=== PATIENT | male | born 1995 | race Caucasian/White ===

== ENCOUNTER 2022-08-28 19:20 | Emergency (ER) | payer SELFPAY ==
[~2022-08-28] VITALS: Ht 162.6 cm; Wt 65.8 kg
[2022-08-28 20:24] VITALS: BP 150/80
[2022-08-28] MEDS ORDERED: HYDROCODONE/APAP 5/325MG TABLET PO ONE (20:30)
[2022-08-28] MEDS ORDERED: LIDOCAINE HCL/PF 1% 30 ML VIAL TP ONE (20:30)
[2022-08-28] MEDS ORDERED: TDAP [DIPH/PERTUSSIS/TET] 0.5 ML VIAL IM ONE ×2 (20:30→20:48)
[2022-08-28] MEDS ORDERED: LIDOCAINE HCL/MPF 1% 30 ML VIAL IJ ONE (20:47)
[2022-08-28] MEDS ORDERED: HYDROCODONE/APAP 5/325MG TABLET ONE (20:48)
[2022-08-28] MEDS ORDERED: CEPHALEXIN MONOHYDRATE 500 MG CAPSULE PO ONE ×3 (21:30→21:32)
[2022-08-28] MEDS ORDERED: CEPH500T PO (21:50)
[2022-08-28] MEDS ORDERED: HYDR-4209 PO (21:50)
[2022-08-28] MEDS ORDERED: IBUP-1955 PO (21:50)
--- NOTE | 2022-08-28 22:11 | NUR ---
Patient discharged to home in stable condition. Written and verbal after care instructions given. Patient verbalizes understanding of instruction.
== END 2022-08-28 22:12 | disposition home or self-care (01) ==
LOC: ER 19:30
DX: S61.012A Laceration without foreign body of left thumb without damage to nail, initial encounter (principal); Z60.2 Problems related to living alone; W27.0XXA Contact with workbench tool, initial encounter; Y93.89 Activity, other specified; Y92.89 Other specified places as the place of occurrence of the external cause; Y99.8 Other external cause status
CPT/HCPCS: 99284; 12002; 90471; 90715; 73130; J3490 ×2